=== PATIENT | male | born 1965 | race Caucasian/White ===

== ENCOUNTER → 2016-10-13 | Outpatient (CLI) | payer OTHER ==
[~2016-10-13] MED LIST: ACET-1256 PO; IBUP-1050 PO; MULT-506 PO; NAPR1TAB9 PO
--- NOTE | 2016-10-13 12:21 | DIAGNOSTIC IMAGING REPORT ---
THYROID ULTRASOUND CLINICAL HISTORY: Multiple thyroid nodules. COMPARISON STUDY: None. TECHNIQUE: Sonography of the thyroid gland was performed. FINDINGS: The right lobe measures 5 x 1.7 x 1.2 cm and the left lobe measures 4.7 x 1.7 x 1.2 cm. There are several thyroid nodules, including a 0.5 x 0.5 x 0.5 cm hypoechoic nodule within the midpole of the right lobe. There is a 1 x 0.9 x 1 cm isoechoic nodule within hypoechoic halo within the lower pole of the left thyroid lobe. There is also a 0.5 cm left lower pole nodule. IMPRESSION: Several thyroid nodules, measuring up to 1 cm. Although nonspecific, none of these nodules have suspicious imaging characteristics and none of these nodules meet criteria for biopsy. Electronically signed by: Ry Mike M.D. 10/13/2016 12:19 PM Dictated Date/Time: 10/13/2016 12:17 PM
== END | disposition home or self-care (01) ==
LOC: C.ULTR 11:33
PROVIDERS: ATTEND Nurse Practitioner
DX: E04.2 Nontoxic multinodular goiter (principal)